=== PATIENT | male | born 1960 | race Caucasian/White ===

== ENCOUNTER 2024-06-07 08:38 | Outpatient (AMB) | payer MEDICARE, SELFPAY ==
--- NOTE | 2024-06-07 08:40 | MHC.PC.OV ---
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: No Allergies No Known Allergies Allergy (Verified 06/07/24 08:59) Medication List - Last Reconciled 06/07/24 by Angel Baird CNP amlodipine mg PO DAILY apixaban (Eliquis) mg PO BID hydralazine 10 mg PO BID metoprolol succinate ER mg PO DAILY prednisone mg PO DAILY Tobacco use date assessed: 06/07/24 Fall risk assessment: No Falls in past year Last assessed Fall Risk: 06/07/24 Dental Screening Dental Screen Date: 06/07/24 Did you have a dental visit in the last 12 months?: Yes Did you have a dental problem in the last 6 months where you did not have access to dental care?: No Was dental information given to patient?: Patient has dentist HPI HPI Comments History of Present Illness Details 63-year-old male presents to establish care. Prior PCP? - Dr. Jimenez, private practice, [place] Last office visit/CPE/labs - Early 1999 Acute issue(s) - HTN: On amlodipine 10 mg daily, metoprolol succinate 100 mg daily, hydralazine 10 mg twice daily. However, he has not been on metoprolol succinate for the past one month. His home systolic blood pressure is in the 130s and 140s. He does not recall home diastolic blood pressure readings. - Afib: Diagnosed at [facility] in 01/2024 when he was admitted for COVID-19 infection; echocardiogram was not done; he has not followed cardiology. He is on Eliquis 5mg twice daily. - Organizing pneumonia: On prednisone taper. Followed by [facility] pulmonology. - Myopia: He Wears prescription glasses. - Painless lesion to bottom lip for several years. Past Medical History - HTN - Afib - Organizing pneumonia - Myopia Surgical History - Tonsillectomy Family History - Dad: HTN - Mom: Lung cancer Social History - Nonsmoker. Does not vape. Drinks 1 beer weekly. Denies recreational drug use - Does not make healthy dietary choices. Active but does not exercises routinely. Generally sleep well Health maintenance - Last eye exam was 20 years ago. Referred to ophthalmology for routine eye care - Last dental visit was 3 months ago. He sees receives dental care three times yearly - He has never been vaccinated for shingles or pneumonia; encouraged to get vaccinated for both. He may get a vaccines from the local pharmacy - Last tetanus vaccine was at childhood; received Tdap vaccine today - Has not been vaccinated for the flu this season; received the flu vaccine today - He has never had a colonoscopy. [place] [facility] [place] Specialists - [facility] pulmonology 01/24/2024 [facility] ED discharge summary: Recent presented not feeling well to the ED. he tested positive for COVID-19. He was administered IV steroids. CVAT scan of the chest revealed organizing pneumonia in the right lower lobe. He completed 5 days of antibiotic treatment while in the hospital and his pneumonia improved. He was also diagnosed with AFib (likely in the setting of COVID-19), hypertension, diabetes with an A1c of 6.6%. For hypertension, who was started amlodipine 10 mg daily and hydralazine 10 mg twice daily. For AFib, he was started on metoprolol 100 mg daily and Eliquis 5 mg twice daily. He was discharged home with instructions to follow-up with his PCP, pulmonology, and Cardiology (for outpatient echocardiogram). 04/08/2024 [facility] pulmonology note: Organism pneumonia is related to COVID-19 disease, improving, chest x-ray clear. Continue prednisone 10 mg daily. Bactrim was discontinued. Follow-up in 06/2024. [facility] Medical History (Updated 06/07/24 @ 13:03 by Angel Baird CNP) High blood pressure Surgical History (Updated 06/07/24 @ 10:15 by Angel Baird CNP) Hx of tonsillectomy Family History (Updated 06/07/24 @ 08:55 by Aisha Smith) Father High blood pressure Lung cancer Mother Cancer Social History Housing: House Patient Tobacco Use Status: Never used Tobacco e-Cigarette/Vaping Use: Never Used Second Hand Smoke Exposure: No service: No Current occupational status: retired Cognitive needs: No Hearing needs: No Vision needs: No Questionnaire PHQ-9 Over the last 2 weeks, how often have you been bothered by any of the following problems? 1. Little interest or pleasure in doing things: not at all 2. Feeling down, depressed, or hopeless: not at all 3. Trouble falling or staying asleep, or sleeping too much: not at all 4. Feeling tired or having little energy: several days 5. Poor appetite or overeating: not at all 6. Feeling bad about yourself - or that you are a failure or have let yourself or your family down: not at all 7. Trouble concentrating on things, such as reading the newspaper or watching television: not at all 8. Moving or speaking so slowly that other people could have noticed. Or the opposite - being so fidgety or restless that you have been moving around a lot more than usual: not at all 9. Thoughts that you would be better off or of hurting yourself in some way: not at all Total score: 1 Depression Screening Interpretation: Negative Depression Screening Done: Yes 11186 - PHQ-9 Billing: Yes Source: Developed by Drs. Brandyn Negrete, Anabella Faustin, Nikolas Abarca and colleagues, with an educational barbara from [employer]. Thrive Questionnaire Date Thrive assessed: 06/07/24 I am a: Patient What is your living situation today?: I have a steady place to live Within the past 12 months, did the food you bought not last and you didn't have the money to get more?: Never true Within the past 12 months, did you worry whether your food would run out before you got money to buy more?: Never true Do you have trouble paying for medicines?: No Do you have trouble getting transportation to medical appointments?: No Do you have trouble paying your heating and electricity bill?: No Do you have trouble taking care of your child, family member or friend?: No Do you have trouble with day-to-day activities such as bathing, preparing meals, shopping, managing finances, etc.?: No Are you currently unemployed and looking for a job?: No Are you interested in more education?: No Please select the resources that you would like help with: None Currently or been in a relationship where the following occur: No concerns reported THRIVE Score: 0 AUDIT C Alcohol Use Questionnaire (AUDIT-C) 1. How often do you have a drink containing alcohol?: Monthly or less 2. How many drinks containing alcohol do you have on a typical day when you are drinking?: 1 or 2 3. How often do you have six or more drinks on one occasion?: Never Total Score: 1 Score Reviewed/Action Taken: Yes DORYS-7 AMB Questionnaire DORYS-7 Date DORYS - 7 assessed: 06/07/24 Feeling nervous, anxious, or on edge: 0 = Not at all Not being able to stop or control worryin = Not at all Worrying too much about different things: 0 = Not at all Trouble relaxin = Not at all Being so restless that it is hard to sit still: 0 = Not at all Becoming easily annoyed or irritable: 0 = Not at all Feeling afraid as if something awful might happen: 0 = Not at all Total DORYS-7 score (0-4 normal; 5-9 mild; 10-14 moderate; 15-21 severe): 0 Source: Developed by Drs. Brandyn Negrete, Anabella Faustin, Nikolas Abarca and colleagues, with an educational barbara from [employer]. DORYS-7 Assessment Billing DORYS-7 Assessment Tool: DORYS-7 Assessment 12505 Review of Systems Const Details: Denies chills, Denies fatigue, Denies fever(s), Denies headache(s) and Denies weakness HEENT Denies change in vision, Denies dizziness, Denies headache(s), Denies hearing loss, Denies nasal congestion, Denies sinus pain, Denies sinus pressure and Denies sore throat Card Denies chest pain, Denies lightheadedness, Denies dyspnea and Denies other (palpitations) Resp Denies cough, Denies dyspnea and Denies wheezing GI Denies abdominal pain, Denies melena, Denies hematochezia, Denies change in bowel habits, Denies dyspepsia and Denies nausea Denies hematuria and Denies dysuria Musc Denies abnormal gait, Denies myalgias, Denies arthralgias, Denies numbness and Denies tingling Skin/Breast Reports lesion to bottom lip, Denies rash, Denies unusual bruising and Denies wounds Neuro Denies abnormal gait, Denies dizziness, Denies headache(s), Denies memory loss, Denies numbness, Denies Sensory deficit (Neuro), Denies tingling and Denies weakness Psych Denies anxiety, Denies depression and Denies memory loss Endo Denies cold intolerance, Denies fatigue, Denies heat intolerance, Denies polydipsia and Denies polyuria Daniel/Lymph Denies easy bleeding and Denies easy bruising Aller/Immun Denies wheezing Physical exam (Primary Care) Vital Signs: Last Vital Signs Temp 99.0 F 06/07/24 08:52 Pulse 80 06/07/24 09:04 Resp 16 06/07/24 08:52 BP 160/90 H 06/07/24 09:04 Pulse Ox 96 06/07/24 08:52 Oxygen Delivery Method Room Air 06/07/24 08:52 BMI result Body Mass Index 42.0 Tobacco/Smoking Status: Tobacco use Status Tobacco use date assessed 06/07/24 06/07/24 08:52 Patient Tobacco Use Status Never used Tobacco 06/07/24 08:52 e-Cigarette/Vaping Use Never Used 06/07/24 08:52 PHQ-9: PHQ-9 Score PHQ-9: Total score 1 06/07/24 10:22 Depression Screening Interpretation: Negative Thrive Assessment: Date of Thrive Assessment Date Thrive assessed 06/07/24 06/07/24 08:43 Currently or been in a relationship where the following occur: No concerns reported Const Other: General: no acute distress, well developed, alert and awake Nutritional Appearance: well nourished Orientation/consciousness: patient oriented x3 HENMT Head: Yes normocephalic and Yes atraumatic Ears: hearing grossly normal bilaterally and TM's normal bilaterally General nose exam: Normal external nose present and Normal nares present Mouth: Normal oral and palatal mucosa present and moist mucous membranes Teeth and gingiva: dentition normal Throat: Yes oropharynx normal Eyes Pupils: Equal, round and reactive pupils present and Pupil accommodation reflex normal EOM: EOMs intact bilaterally Neck Neck: Yes normal visual inspection, Yes no lymphadenopathy and Yes trachea midline Thyroid: Thyroid normal Carotids: no bruits Lymphatic: no lymphadenopathy noted Chest Chest palpation & inspection: normal inspection of the chest Resp Effort & Inspection: normal respiratory effort Auscultation: clear to auscultation bilaterally Cardio Rate: regular rate Rhythm: regular rhythm Heart sounds: S1 normal heart sound present, S2 normal heart sound present, no gallops, no murmurs and no rubs Bruits: no abdominal aortic bruits and no carotid bruits GI Palpation (GI): No Abdominal aortic bruit present, Soft to palpation, nontender, No hepatosplenomegaly present and No Rebound tenderness present Auscultation: normal bowel sounds General: Yes no CVA tenderness Back/Spine/Pelvis Back: no CVA tenderness Cervical Spine: cervical ROM normal and No Cervical spine tenderness Thoracic/Lumbar Spine: thoraco-lumbar ROM normal, No pain with thoraco-lumbar ROM, No thoracic spinal tenderness and No lumbar spinal tenderness Skin General: warm and dry. Normal skin color. Normal skin turgor Lesions: Soft, small, round, nonraised, nontender discoloration to the bottom lip Rashes: no rashes Trauma: no lacerations or abrasions Wounds: no wounds Nails: normal Neuro General: patient oriented x3, gait normal and CN's II-XI intact bilaterally Cranial nerves: Yes Equal, round and reactive pupils present Cognition (Neuro): normal cognition Gait exam (Neuro): Normal gait present Motor exam (neuro): 5/5 motor strength present throughout Sensory Exam: No Sensory deficit (Neuro) Deep tendon reflexes (DTR's): Right patellar reflex intensity grade: 2+ and Left patellar reflex intensity grade: 2+ Extrem General: Yes normal to inspection, No edema and No calf tenderness Psych Appearance: grossly normal Affect: normal affect Attitude: cooperative Thought process: Normal thought process present Office Procedures Flu Questionnaire Does the patient have a severe egg allergy?: No Does the patient have severe life threatening allergies?: No Does the patient have a fever or illness today?: No Has the patient ever had Guillain-[place] Syndrome?: No Has the patient ever had any past reaction to a flu shot?: No Immunizations Fluarix Triv 1675-3511 (PF) 45 mcg (15 mcg x 3)/0.5 mL IM syringe Performing Provider: Angel Baird CNP [place] [facility] [place] [facility] Administered by: Jesse Saldana RN on 06/07/24 09:45 Dose Route Admin Location Dispensed Lot Number Expiration Date [facility] Hand Crown Pouncer 0.5 mL IM Right Deltoid 0.5 mL [id number] 10/01/24 60301-664-02 [place] VIS Given Date VIS Provided VIS Publication Date 06/07/24 Single Vaccine 20 Eligibility Eligibility Date Funding Source Not VFC Eligible 06/07/24 Private Boostrix Tdap 2.5 Lf unit-8 mcg-5 Lf/0.5 mL intramuscular syringe Performing Provider: Angel Baird CNP Performing [place] [facility] [place] Administered by: Jesse Saldana RN on 06/07/24 09:47 Dose Route Admin Location Dispensed Lot Number Expiration Date [employer] Hand Crown Pouncer 0.5 mL IM Right Deltoid 0.5 mL [id number] 01/29/25 [id number] [employer] VIS Given Date VIS Provided VIS Publication Date 06/07/24 Single Vaccine 20 Eligibility Eligibility Date Funding Source Not VFC Eligible 06/07/24 Private Coding Level of Care Code New Pt Level 5 (32600) New Pt Prev Care >65yr (13750) Diagnoses Normal physical examination, routine Z00.00 Afib I48.91 High blood pressure I10 Organizing pneumonia J84.89 Type 2 diabetes mellitus E11.9 Lip lesion K13.0 Morbid obesity with BMI of 40.0-44.9, adult E66.01; Z68.41 Colon cancer screening Z12.11 Myopia H52.10 Vaccine counseling Z71.85 Laboratory tests ordered as part of a complete physical exam (CPE) Z00.00 Additional Codes DORYS-7 Assessment Billing - DORYS-7 Assessment Tool: DORYS-7 Assessment 62015 ([id number]) PHQ-9 - 51205 - PHQ-9 Billing: Yes ([id number]) Comment 50 minutes with patient Assessment & Plan Assessment & Plan (1) Normal physical examination, routine: Code(s): Z00.00 - Encounter for general adult medical examination without abnormal findings Category: Medical Plan: No significant functional limitation noted. Continue current treatment regimen. Advised to perform lab work and follow-up for hypertension and labs review in 2 weeks. Return sooner with symptoms or concerns. Verbalized understanding and agreed with treatment plan. (2) Afib: Code(s): I48.91 - Unspecified atrial fibrillation Category: Medical Plan: He was diagnosed with AFib when he was admitted for COVID-19 infection at [facility] ED in 01/2024. He was started on Eliquis 5 mg twice daily which she continues to take. EKG in office today revealed normal sinus rhythm with LVH which may be attributed to uncontrolled hypertension. There is isolated peak T-wave in lead V2. Continue to take Eliquis as prescribed. Will check potassium level and make changes as needed. Referred to Cardiology for further workup/management. Verbalized understanding and agreed with the plan. (3) High blood pressure: Code(s): I10 - Essential (primary) hypertension Category: Medical Plan: Resting blood pressure is 160/90, above goal of less than 140/90. He has been taking amlodipine 10 mg daily and hydralazine 10 mg twice daily; encouraged to continue both meds. He has not been taking metoprolol succinate 100 mg since he ran out of refills a month ago. Metoprolol succinate 50 mg daily ordered; advised to take as prescribed. Instructed on the risks, benefits, and potential adverse reactions of the medication. His home systolic blood pressure readings have in the 130s and 140s. He will continue to monitor his blood pressure daily, record readings, and bring to next appointment. Follow-up in 2 weeks. Verbalized understanding and agreed with treatment plan. Cardiology referral made for AFib and hypertension. (4) Organizing pneumonia: Code(s): J84.89 - Other specified interstitial pulmonary diseases Category: Medical Plan: Currently on prednisone taper. Followed by [facility] pulmonology. (5) Type 2 diabetes mellitus: Code(s): E11.9 - Type 2 diabetes mellitus without complications Category: Medical Plan: He was diagnosed and 01/24/2024; his A1c was 6.6%. He has not been on medications for diabetes. Routine exercise and healthy diet, including low carbs encouraged. Will recheck A1c and make changes as needed. Verbalized understanding and agreed with treatment plan. (6) Lip lesion: Code(s): K13.0 - Diseases of lips Category: Medical Plan: Lesion to bottom lip for several years. Soft, small, round, nonraised, nontender discoloration to the bottom lip. Referred to dermatology for further workup. (7) Morbid obesity with BMI of 40.0-44.9, adult: Code(s): E66.01 - Morbid (severe) obesity due to excess calories; Z68.41 - Body mass index [BMI] 40.0-44.9, adult Category: Medical Plan: He currently weighs 310 lb, BMI is 42.0. He has been making on healthy dietary choices. He declines referral to video engineer/dietitian or weight management and notes that he will start making healthy dietary choices and exercising routinely. Healthy diet and routine exercise encouraged. Follow-up as needed. Verbalized understanding and agreed with the treatment plan. (8) Colon cancer screening: Code(s): Z12.11 - Encounter for screening for malignant neoplasm of colon Category: Medical Plan: He has never had a colonoscopy. [place] [facility] [place] a colon[place]. (9) Myopia: Code(s): H52.10 - Myopia, unspecified eye Category: Medical Plan: He wears prescription glasses. His last eye exam was 20 years ago. Referred to ophthalmology for routine eye care. (10) Vaccine counseling: Code(s): Z71.85 - Encounter for immunization safety counseling Category: Medical Plan: He has never been vaccinated for shingles or pneumonia. Instructed on the importance of vaccinations and encouraged to get vaccinated for both shingles and pneumonia. He may get a vaccines from the local pharmacy. Verbalized understanding and agreed with treatment plan. (11) Laboratory tests ordered as part of a complete physical exam (CPE): Code(s): Z00.00 - Encounter for general adult medical examination without abnormal findings Category: Medical Plan: Fasting labs ordered as part of a complete physical exam. Advised to fast for at least 10 hours before getting labs drawn. May drink water Verbalized understanding and agreed with treatment plan. Plan Total time spent caring for the patient today was 75 minutes. This includes time spent before the visit reviewing the chart, time spent during the visit, and time spent after the visit on documentation, reviewing laboratory results, diagnostic imaging, medications, performing a medically necessary evaluation, counseling on diagnoses, care coordination, ordering appropriate tests, ordering appropriate medications, review of tests performed by other providers, reporting test results with the patient, communication with other healthcare providers. Orders: Orders Comprehensive [place]. Panel Fast Today Z00.00 - Encounter for general adult medical examination without abnormal findings Lipid Panel Today Z00.00 - Encounter for general adult medical examination without abnormal findings TSH reflex Free T4 Today Z00.00 - Encounter for general adult medical examination without abnormal findings PSA, Ultra Sensitive Today Z00.00 - Encounter for general adult medical examination without abnormal findings UA CC w/rflx Micro + Cult Today Z00.00 - Encounter for general adult medical examination without abnormal findings Vitamin D 25-OH Total Today Z00.00 - Encounter for general adult medical examination without abnormal findings Influenza 4700-1332 Immunization Today Z23 - Encounter for immunization TDaP Immunization Today Z23 - Encounter for immunization AMB EKG-In Office Today I48.91 - Unspecified atrial fibrillation Hemoglobin A1c Today E11.9 - Type 2 diabetes mellitus without complications Complete Blood Count Auto Diff Today Z00.00 - Encounter for general adult medical examination without abnormal findings Microalbumin, Random (w Creat) Today Z00.00 - Encounter for general adult medical examination without abnormal findings Referrals Ophthalmology Referral H52.10 - Myopia, unspecified eye Dermatology Referral K13.0 - Diseases of lips Cardiology Referral I10 - Essential (primary) hypertension, I48.91 - Unspecified atrial fibrillation Gastroenterology Referral Z12.11 - Encounter for screening for malignant neoplasm of colon Medications: New metoprolol succinate ER 50 mg PO DAILY 30 days 30 tabs 3RF
[2024-06-07 08:52] VITALS: BP 177/84; PULSE 80; RESP 16; TEMP 37.2; O2SAT 96; BMI 42.0
[2024-06-07 09:04] VITALS: BP 160/90; PULSE 80
== END 2024-06-07 10:02 | disposition home or self-care (01) ==
PROVIDERS: Visit Provider Nurse Practitioner Family
DX: Z00.00 Encounter for general adult medical examination without abnormal findings (principal); I48.91 Unspecified atrial fibrillation; J84.89 Other specified interstitial pulmonary diseases; E66.01 Morbid (severe) obesity due to excess calories; Z68.41 Body mass index [BMI] 40.0-44.9, adult; E11.9 Type 2 diabetes mellitus without complications; I10 Essential (primary) hypertension; K13.0 Diseases of lips; Z12.11 Encounter for screening for malignant neoplasm of colon; Z71.85 Encounter for immunization safety counseling; Z23 Encounter for immunization

== ENCOUNTER → 2024-06-07 08:38 | Outpatient (BNVA) | payer MEDICARE, SELFPAY | PROVIDERS: Visit Provider Nurse Practitioner Family | DX: Z00.00 Encounter for general adult medical examination without abnormal findings (principal); Z23 Encounter for immunization; I48.91 Unspecified atrial fibrillation; I10 Essential (primary) hypertension; J84.89 Other specified interstitial pulmonary diseases; E11.9 Type 2 diabetes mellitus without complications; K13.0 Diseases of lips; E66.01 Morbid (severe) obesity due to excess calories; Z68.41 Body mass index [BMI] 40.0-44.9, adult; H52.10 Myopia, unspecified eye; Z71.85 Encounter for immunization safety counseling; Z71.3 Dietary counseling and surveillance | CPT/HCPCS: 90471; 90656; 90715; 96127; 99202; 99387 ==

== ENCOUNTER 2024-06-12 09:06 | Outpatient (REF) | payer MEDICARE, SELFPAY ==
[2024-06-12 11:42] LABS: MANUAL DIFF FLAG NO
[2024-06-12 11:46] LABS: Basophils Absolute Auto 0.1 X10*3/uL (0.0-0.2); Basophils Percent Auto 0.6 % (0-2); Eosinophils Absolute Auto 0.1 X10*3/uL (0.0-0.4); Eosinophils Percent Auto 1.7 % (0-4); Hemoglobin 14.6 g/dl (14.0-18.0); Imm Gran Abs Auto 0.07 X10*3/uL (0.00-0.03); Imm Gran Pct Auto 0.9 % (0.0-0.4); Lymphocytes Percent Auto 36.2 % (20-40); Mean Corpuscular HGB Conc 33.2 g/dl (31.0-36.0); Mean Corpuscular Hemoglobin 30.6 pg (27.0-33.0); Mean Corpuscular Volume 92.2 fL (80.0-98.0); Mean Platelet Volume 11.4 fL (9.4-12.4); Monocytes Absolute Auto 0.7 X10*3/uL (0.1-1.2); Monocytes Percent Auto 8.1 % (2-11); Neutrophils Absolute Auto 4.3 x10*3/uL (2.0-8.3); Neutrophils Percent Auto 52.5 % (45-73); Platelet Count 190 X10*3/uL (160-400); Red Blood Count 4.77 X10*6/uL (4.60-5.80); Red Cell Distribution Width 12.2 % (11.0-16.0); White Blood Count 8.2 X10*3/uL (4.8-10.8)
[2024-06-12 11:54] LABS: Estimated Average Glucose 131 mg/dL; Hemoglobin A1c % 6.2 % (<6.0)
[2024-06-12 12:48] LABS: Alanine Aminotransferase 20 U/L (0-40); Albumin Level 3.7 g/dL (3.5-5.0); Alkaline Phosphatase 38 U/L (39-117); Anion Gap 10 (12-20); Aspartate Amino Transferase 20 U/L (5-37); Bilirubin Total 0.7 mg/dL (0.0-1.0); Blood Urea Nitrogen 21 mg/dL (9-16); Calcium 8.7 mg/dL (8.4-10.2); Carbon Dioxide 28 mmol/L (22-29); Chloride 110 mmol/L (96-108); Cholesterol 213 mg/dL (<200); Estimated Glomerular Filt Rate 56; Glucose Fasting 92 mg/dL (60-99); HDL Cholesterol 55 mg/dL (>40); LDL Cholesterol Calculated 127 mg/dL (<100); Potassium 3.8 mmol/L (3.3-5.1); Sodium 144 mmol/L (135-145); TSH reflex Free T4 4.82 uIU/mL (0.32-4.0); Total Protein 6.6 g/dL (6.5-8.0); Triglycerides 159 mg/dL (<150); Vitamin D 25-OH Total 40.1 ng/mL (>30)
[2024-06-12 14:38] LABS: Appearance Urine Clear; Color Urine Dark Yellow; Glucose Urine UA Negative (Negative); Leukocyte Esterase Urine Negative (Negative); Nitrite Urine Negative (Negative); PH 5.5 (5.0-9.0); Specific Gravity - Urine 1.025 (1.005-1.025); UMIC TRIGGER UACC YES; Urine Blood Negative (Negative); Urine Ketones Trace mg/dL (Negative); Urine Protein 30 (1+) mg/dL (Neg-Trace)
[2024-06-12 14:55] LABS: Bacteria Urine None Seen (None Seen); RBC Urine 0-2 /HPF (0-2); Squamous Epithelial Cell Urine 0-2 /HPF (0-2); WBC Urine 0-5 /HPF (0-5)
[2024-06-12 15:38] LABS: Microalbum/Creatinine Ratio Ur 10.1 ug/mg cr (<30)
[2024-06-16 21:09] LABS: PSA, Ultra Sensitive 1.37 ng/mL
== END 2024-06-12 09:07 | disposition home or self-care (01) ==
LOC: HO.WFDLDS 09:06
PROVIDERS: Visit Provider Nurse Practitioner Family
DX: Z00.00 Encounter for general adult medical examination without abnormal findings (principal); E11.9 Type 2 diabetes mellitus without complications; Z12.5 Encounter for screening for malignant neoplasm of prostate
CPT/HCPCS: 36415; 80053; 80061; 81001; 82043; 82306; 82570; 83036; 84153; 84439; 84443; 85025

== ENCOUNTER 2024-06-21 10:40 | Outpatient (AMB) | payer MEDICARE, SELFPAY ==
--- NOTE | 2024-06-21 10:42 | A.OFFPC_ITS ---
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 Required: No Allergies No Known Allergies Allergy (Verified 06/21/24 10:53) Medication List - Last Reconciled 06/21/24 by Angel Baird CNP amlodipine mg PO DAILY apixaban (Eliquis) mg PO BID hydralazine 10 mg PO BID metoprolol succinate ER 50 mg PO DAILY 30 days prednisone 5 mg PO DAILY prednisone 5 mg PO DAILY Tobacco use date assessed: 06/21/24 Fall risk assessment: No Falls in past year Last assessed Fall Risk: 06/21/24 Dental Screening Dental Screen Date: 06/21/24 Did you have a dental visit in the last 12 months?: Yes Did you have a dental problem in the last 6 months where you did not have access to dental care?: No Was dental information given to patient?: Patient has dentist HPI HPI Comments History of Present Illness Details 63-year-old male presents for hypertensi on and review of recent lab results. He admits to taking his medications as prescribed without adverse reactions. He admits to consuming significant amount of fatty foods. He offers no complaints and denies acute symptoms at this time. [facility] Medical History (Updated 06/21/24 @ 10:54 by Angel Baird CNP) High blood pressure Surgical History (Updated 06/07/24 @ 10:15 by Angel Baird CNP) Hx of tonsillectomy Family History (Updated 06/07/24 @ 08:55 by Aisha Smith MA) Father High blood pressure Lung cancer Mother Cancer Social History Housing: House Patient Tobacco Use Status: Never used Tobacco e-Cigarette/Vaping Use: Never Used Second Hand Smoke Exposure: No service: No Current occupational status: retired Current occupational exposures/hazards: No Cognitive needs: No Hearing needs: No Vision needs: No Questionnaire Thrive Questionnaire Date Thrive assessed: 06/07/24 I am a: Patient What is your living situation today?: I have a steady place to live Within the past 12 months, did the food you bought not last and you didn't have the money to get more?: Never true Within the past 12 months, did you worry whether your food would run out before you got money to buy more?: Never true Do you have trouble paying for medicines?: No Do you have trouble getting transportation to medical appointments?: No Do you have trouble paying your heating and electricity bill?: No Do you have trouble taking care of your child, family member or friend?: No Do you have trouble with day-to-day activities such as bathing, preparing meals, shopping, managing finances, etc.?: No Are you currently unemployed and looking for a job?: No Are you interested in more education?: No Please select the resources that you would like help with: None Currently or been in a relationship where the following occur: No concerns reported THRIVE Score: 0 DORYS-7 AMB Questionnaire DORYS-7 Date DORYS - 7 assessed: 06/07/24 Source: Developed by Drs. Brandyn Negrete, Anabella Faustin, Nikolas Abarca and colleagues, with an educational barbara from [email or web address]. Review of Systems Const Details: Const Denies chills, Denies fatigue, Denies fever(s), Denies headache(s) and Denies weakness ENT Denies dizziness and Denies headache(s) Card Denies chest pain, Denies lightheadedness, Denies dyspnea and Denies other (Palpitations) Resp Denies cough, Denies dyspnea, Denies wheezing and Denies other ( shortness of breath) GI Denies abdominal pain, Denies melena, Denies hematochezia, Denies change in bowel habits, Denies dyspepsia and Denies nausea Denies hematuria and Denies dysuria Musc Denies abnormal gait, Denies myalgias, Denies arthralgias, Denies numbness and Denies tingling Skin/Breast Denies rash, Denies unusual bruising and Denies wounds Neuro Denies abnormal gait, Denies dizziness, Denies headache(s), Denies memory loss, Denies numbness, Denies Sensory deficit (Neuro), Denies tingling and Denies weakness Psych Denies anxiety, Denies depression, Denies memory loss Endo Denies cold intolerance, Denies fatigue, Denies heat intolerance, Denies polydipsia and Denies polyuria Aller/Immun Denies wheezing Physical exam (Primary Care) Vital Signs: Last Vital Signs Temp 97.4 F 06/21/24 10:46 Pulse 61 06/21/24 10:46 Resp 16 06/21/24 10:46 BP 150/81 H 06/21/24 10:46 Pulse Ox 97 06/21/24 10:46 Oxygen Delivery Method Room Air 06/21/24 10:46 BMI result Body Mass Index 42.0 Tobacco/Smoking Status: Tobacco use Status Tobacco use date assessed 06/21/24 06/21/24 10:51 Patient Tobacco Use Status Never used Tobacco 06/21/24 10:44 e-Cigarette/Vaping Use Never Used 06/21/24 10:44 Thrive Assessment: Date of Thrive Assessment Date Thrive assessed 06/07/24 06/21/24 10:44 Currently or been in a relationship where the following occur: No concerns reported Const Other: General: no acute distress and well developed Nutritional Appearance: well nourished Orientation/consciousness: patient oriented x3 HENMT Head: Yes normocephalic and Yes atraumatic Eyes General: appearance normal, both eyes and all related structures Pupils: Equal, round and reactive pupils present EOM: EOMs intact bilaterally Resp Effort & Inspection: normal respiratory effort Auscultation: clear to auscultation bilaterally Cardio Rate: regular rate Rhythm: regular rhythm Heart sounds: S1 normal heart sound present, S2 normal heart sound present, no gallops, no murmurs and no rubs GI Palpation (GI): No Abdominal aortic bruit present, Soft to palpation, nontender, No hepatosplenomegaly present and No Rebound tenderness present Auscultation: normal bowel sounds General: Yes no CVA tenderness Back/Spine/Pelvis Back: no CVA tenderness Cervical Spine: cervical ROM normal and No Cervical spine tenderness Thoracic/Lumbar Spine: thoraco-lumbar ROM normal, No pain with thoraco-lumbar ROM, No thoracic spinal tenderness and No lumbar spinal tenderness Extrem General: Yes normal to inspection, No edema and No calf tenderness Skin General: warm and dry. Normal skin color. Normal skin turgor Neuro General: patient oriented x3, gait normal and no focal neuro deficit Cranial nerves: Yes Equal, round and reactive pupils present Cognition (Neuro): normal cognition Gait exam (Neuro): Normal gait present Sensory Exam: No Sensory deficit (Neuro) Psych Appearance: grossly normal Affect: normal affect Attitude: cooperative Thought process: Normal thought process present Coding Level of Care Code Est Pt Level 3 (66185) Diagnoses High blood pressure I10 Type 2 diabetes mellitus E11.9 Hyperlipidemia E78.5 Elevated TSH R79.89 Assessment & Plan Assessment & Plan (1) High blood pressure: Code(s): I10 - Essential (primary) hypertension Category: Medical Plan: Resting blood pressure is 118/70, within goal of less than 130/80. Continue current treatment regimen. Follow-up in 2 months or sooner with symptoms or concerns. Verbalized understanding and agreed with treatment plan. (2) Type 2 diabetes mellitus: Code(s): E11.9 - Type 2 diabetes mellitus without complications Category: Medical Plan: Recent A1c is 6.2%, within goal of less than 7.0%. Diet controlled diabetes. Routine exercise and healthy diet, including low carbs encouraged. Will recheck A1c in 3 months. Verbalized understanding and agreed with treatment plan. (3) Hyperlipidemia: Code(s): E78.5 - Hyperlipidemia, unspecified Category: Medical Plan: Recent triglycerides, total cholesterol, and LDL levels a slightly elevated, 159, 213, and 127 respectively. He has been consuming significant amount of fatty foods. Advised to limit foods high in saturated fat and avoid foods high in trans fat. Routine exercise encouraged. Fast for 10-12 hours, may drink water, and perform lipid panel blood work 2-3 days before next visit. Follow-up in 2 months. Verbalized understanding and agreed with treatment plan. (4) Elevated TSH: Code(s): R79.89 - Other specified abnormal findings of blood chemistry Category: Medical Plan: Recent TSH is slightly elevated, 4.82. Free T4 is normal. Subclinical hypothyroidism. Will recheck TSH/T4 level and make changes as needed. Verbalized understanding and agreed with treatment plan Orders: Orders Lipid Panel 2 Months E78.5 - Hyperlipidemia, unspecified TSH reflex Free T4 Today R79.89 - Other specified abnormal findings of blood chemistry
[2024-06-21 10:46] VITALS: BP 150/81; PULSE 61; RESP 16; TEMP 36.3; O2SAT 97; BMI 42.0
[2024-06-21 11:03] VITALS: BP 118/70
== END 2024-06-21 11:12 | disposition home or self-care (01) ==
LOC: HO.HMCFM 10:41
PROVIDERS: PCP Nurse Practitioner Family; Visit Provider Nurse Practitioner Family
DX: I10 Essential (primary) hypertension (principal); E11.9 Type 2 diabetes mellitus without complications; E78.5 Hyperlipidemia, unspecified; R79.89 Other specified abnormal findings of blood chemistry

== ENCOUNTER → 2024-06-21 10:40 | Outpatient (BNVA) | payer MEDICARE, SELFPAY | PROVIDERS: PCP Nurse Practitioner Family; Visit Provider Nurse Practitioner Family | DX: I10 Essential (primary) hypertension (principal); E11.9 Type 2 diabetes mellitus without complications; E78.5 Hyperlipidemia, unspecified; R94.6 Abnormal results of thyroid function studies | CPT/HCPCS: 99212 ==

== ENCOUNTER 2024-06-21 11:20 | Outpatient (REF) | payer MEDICARE, SELFPAY ==
[2024-06-21 15:40] LABS: TSH reflex Free T4 2.73 uIU/mL (0.32-4.0)
== END 2024-06-21 11:21 | disposition home or self-care (01) ==
LOC: HO.WFDLDS 11:20
PROVIDERS: Visit Provider Nurse Practitioner Family
DX: I10 Essential (primary) hypertension (principal); E11.9 Type 2 diabetes mellitus without complications; E78.5 Hyperlipidemia, unspecified; R94.6 Abnormal results of thyroid function studies
CPT/HCPCS: 36415; 84443; 99212

== ENCOUNTER 2024-09-10 09:20 | Outpatient (REF) | payer MEDICARE, SELFPAY ==
[2024-09-10 11:44] LABS: Cholesterol 191 mg/dL (<200); HDL Cholesterol 38 mg/dL (>40); LDL Cholesterol Calculated 129 mg/dL (<100); Triglycerides 120 mg/dL (<150)
== END 2024-09-10 09:21 | disposition home or self-care (01) ==
LOC: HO.WFDLDS 09:20
PROVIDERS: Visit Provider Nurse Practitioner Family
DX: E78.5 Hyperlipidemia, unspecified (principal)
CPT/HCPCS: 36415; 80061

== ENCOUNTER 2024-09-11 10:35 | Outpatient (REF) | payer MEDICARE, SELFPAY ==
[2024-09-11 14:18] LABS: Appearance Urine Clear; Color Urine Yellow; Glucose Urine UA Negative (Negative); Leukocyte Esterase Urine Negative (Negative); Nitrite Urine Negative (Negative); Urine Blood Negative (Negative); Urine Ketones Negative (Negative); Urine Protein Negative (Neg-Trace)
== END 2024-09-11 10:36 | disposition home or self-care (01) ==
LOC: HO.LNP 10:35
PROVIDERS: PCP Nurse Practitioner Family; Visit Provider Nurse Practitioner Family
DX: Z00.00 Encounter for general adult medical examination without abnormal findings (principal); R60.0 Localized edema; I10 Essential (primary) hypertension; E78.5 Hyperlipidemia, unspecified; E11.9 Type 2 diabetes mellitus without complications
CPT/HCPCS: 81003; 83036; 99212

== ENCOUNTER 2024-09-11 10:35 | Outpatient (AMB) | payer MEDICARE, SELFPAY ==
--- NOTE | 2024-09-11 10:37 | A.OFFPC_ITS ---
Vital Signs 09/11/24 10:44 Height 6 ft Weight 309 lb 6 oz BMI 42.0 BP 123/74 Blood Pressure Location Rt brachial Position Sitting Respiration 16 Pulse 69 Pulse Source Pulse Oximeter Temp 97.9 F Temp Source Oral Pulse Oximetry (%) 98 Oxygen Delivery Method Room Air Intake Visit Reasons: 2 mos HTN, HLD Intake Note: patient here for 2 months follow up on HTN and HLD Manager Balance Required: No Allergies No Known Allergies Allergy (Verified 09/11/24 11:02) Medication List - Last Reconciled 09/11/24 by Agnel Baird CNP amlodipine 10 mg PO DAILY 30 days apixaban (Eliquis) mg PO BID hydralazine 10 mg PO BID metoprolol succinate ER 50 mg PO DAILY 90 days Tobacco use date assessed: 09/11/24 Fall risk assessment: No Falls in past year Last assessed Fall Risk: 09/11/24 Dental Screening Dental Screen Date: 09/11/24 Did you have a dental visit in the last 12 months?: Yes Did you have a dental problem in the last 6 months where you did not have access to dental care?: No Was dental information given to patient?: Patient has dentist HPI HPI Comments History of Present Illness Details 63-year-old male presents for hypertensi on, hyperlipidemia, and diabet es follow-up. He admits to taking his medications as prescribed without adverse reactions. He has been consuming significant amount of red meat, cheese, and processed foods. He reports swelling to his lower legs, ankles, and feet for the past 2 months. He has difficulty putting on shoes. [facility] Medical History (Updated 09/11/24 @ 11:21 by Angel Baird CNP) High blood pressure Surgical History (Updated 06/07/24 @ 10:15 by Angel Baird CNP) Hx of tonsillectomy Family History (Updated 06/07/24 @ 08:55 by Aisha Smith MA) Father High blood pressure Lung cancer Mother Cancer Social History Housing: House Patient Tobacco Use Status: Never used Tobacco e-Cigarette/Vaping Use: Never Used Second Hand Smoke Exposure: No service: No Current occupational status: retired Current occupational exposures/hazards: No Cognitive needs: No Hearing needs: No Vision needs: No Questionnaire Thrive Questionnaire Date Thrive assessed: 06/07/24 I am a: Patient What is your living situation today?: I have a steady place to live Within the past 12 months, did the food you bought not last and you didn't have the money to get more?: Never true Within the past 12 months, did you worry whether your food would run out before you got money to buy more?: Never true Do you have trouble paying for medicines?: No Do you have trouble getting transportation to medical appointments?: No Do you have trouble paying your heating and electricity bill?: No Do you have trouble taking care of your child, family member or friend?: No Do you have trouble with day-to-day activities such as bathing, preparing meals, shopping, managing finances, etc.?: No Are you currently unemployed and looking for a job?: No Are you interested in more education?: No Please select the resources that you would like help with: None Currently or been in a relationship where the following occur: No concerns reported THRIVE Score: 0 DORYS-7 AMB Questionnaire DORYS-7 Date DORYS - 7 assessed: 06/07/24 Source: Developed by Drs. Brandyn Negrete, Anabella Faustin, Nikolas Abarca and colleagues, with an educational barbara from [employer]. Review of Systems Const Details: Const Denies chills, Denies fatigue, Denies fever(s), Denies headache(s) and Denies weakness ENT Denies dizziness and Denies headache(s) Card Denies chest pain, Denies lightheadedness, Denies dyspnea and Denies other (Palpitations) Resp Denies cough, Denies dyspnea, Denies wheezing and Denies other ( shortness of breath) GI Denies abdominal pain, Denies melena, Denies hematochezia, Denies change in bowel habits, Denies dyspepsia and Denies nausea Denies hematuria and Denies dysuria Musc Reports BLE edema, Denies abnormal gait, Denies myalgias, Denies arthralgias, Denies numbness and Denies tingling Skin/Breast Denies rash, Denies unusual bruising and Denies wounds Neuro Denies abnormal gait, Denies dizziness, Denies headache(s), Denies memory loss, Denies numbness, Denies Sensory deficit (Neuro), Denies tingling and Denies weakness Psych Denies anxiety, Denies depression, Denies memory loss Endo Denies cold intolerance, Denies fatigue, Denies heat intolerance, Denies polydipsia and Denies polyuria Aller/Immun Denies wheezing Physical exam (Primary Care) Vital Signs: Last Vital Signs Temp 97.9 F 09/11/24 10:44 Pulse 69 09/11/24 10:44 Resp 16 09/11/24 10:44 BP 123/74 09/11/24 10:44 Pulse Ox 98 09/11/24 10:44 Oxygen Delivery Method Room Air 09/11/24 10:44 BMI result Body Mass Index 42.0 Tobacco/Smoking Status: Tobacco use Status Tobacco use date assessed 09/11/24 09/11/24 10:46 Patient Tobacco Use Status Never used Tobacco 09/11/24 10:40 e-Cigarette/Vaping Use Never Used 09/11/24 10:40 Thrive Assessment: Date of Thrive Assessment Date Thrive assessed 06/07/24 09/11/24 10:40 Currently or been in a relationship where the following occur: No concerns reported Const Other: General: no acute distress and well developed Nutritional Appearance: well nourished Orientation/consciousness: patient oriented x3 HENVT Head: Yes normocephalic and Yes atraumatic Eyes General: appearance normal, both eyes and all related structures Pupils: Equal, round and reactive pupils present EOM: EOMs intact bilaterally Resp Effort & Inspection: normal respiratory effort Auscultation: clear to auscultation bilaterally Cardio Rate: regular rate Rhythm: regular rhythm Heart sounds: S1 normal heart sound present, S2 normal heart sound present, no gallops, no murmurs and no rubs GI Palpation (GI): No Abdominal aortic bruit present, Soft to palpation, nontender, No hepatosplenomegaly present and No Rebound tenderness present Auscultation: normal bowel sounds General: Yes no CVA tenderness Back/Spine/Pelvis Back: no CVA tenderness Cervical Spine: cervical ROM normal and No Cervical spine tenderness Thoracic/Lumbar Spine: thoraco-lumbar ROM normal, No pain with thoraco-lumbar ROM, No thoracic spinal tenderness and No lumbar spinal tenderness Extrem General: Yes normal to inspection, No calf tenderness, Moderate, 1+ edema to bilateral lower legs, ankles, and feet Skin General: warm and dry. Normal skin color. Normal skin turgor Neuro General: patient oriented x3, gait normal and no focal neuro deficit Cranial nerves: Yes Equal, round and reactive pupils present Cognition (Neuro): normal cognition Gait exam (Neuro): Normal gait present Sensory Exam: No Sensory deficit (Neuro) Psych Appearance: grossly normal Affect: normal affect Attitude: cooperative Thought process: Normal thought process present Results AMB Hemoglobin A1c AMB Hemoglobin A1c 6.2 % Last Edit by Aisha Smith MA on 09/11/24 11:12 Results Reviewed Results Reviewed: Laboratory Last Values Hgb A1c (Clinic) 6.2 % (4.0-6.0) H 09/11/24 11:01 Coding Level of Care Code Est Pt Level 4 (84665) Complex EM visit Add On G2211 Diagnoses Bilateral lower extremity edema R60.0 High blood pressure I10 Hyperlipidemia E78.5 Type 2 diabetes mellitus E11.9 Assessment & Plan Assessment & Plan (1) Bilateral lower extremity edema: Code(s): R60.0 - Localized edema Category: Medical Plan: He reports swelling to his lower legs, ankles, and feet for the past 2 months. He has difficulty putting on shoes. Moderate, 1+ edema to bilateral lower legs, ankles, and feet. Likely due to adverse reaction of amlodipine. Amlodipine and hydralazine discontinued at this time. Lisinopril 20 mg daily ordered; advised to take as prescribed. Instructed on the risks, benefits, and potential adverse reactions of the medication. Continue to take metoprolol ER 50 mg daily. Low-sodium diet encouraged. Encouraged to elevate his bilateral lower extremity to improve edema. Follow-up in 2 weeks or sooner with symptoms or concerns. Verbalized understanding and agreed with treatment plan. (2) High blood pressure: Code(s): I10 - Essential (primary) hypertension Category: Medical Plan: Resting blood pressure is 123/74, within goal of less than 130/80. Plan as above. (3) Hyperlipidemia: Code(s): E78.5 - Hyperlipidemia, unspecified Category: Medical Plan: Recent LDL level is elevated, 129, goal is less than 70. Previous level was 127. HDL level is slightly low, 38. He has been consuming significant amount of red meat, cheese, and processed foods. Advised to limit foods high in saturated fat and avoid foods high in trans fat. Routine exercise encouraged. Will recheck lipid panel level in 3 months. Verbalized understanding and agreed with the treatment plan. (4) Type 2 diabetes mellitus: Code(s): E11.9 - Type 2 diabetes mellitus without complications Category: Medical Plan: Diet controlled diabetes. A1c today 6.2%, within goal of less than 7.0%. Previous A1c was 6.2%. ADA diet and routine exercise encouraged. Will recheck A1c in 6 months. Verbalized understanding and agreed with the plan. Orders: Orders AMB Hemoglobin A1c Today Z13.9 - Encounter for screening, unspecified Medications: New lisinopril 20 mg PO DAILY 30 days 30 tabs 3RF Discontinued amlodipine Discontinued Reason: Doctor's Order 10 mg PO DAILY 30 days 30 tabs 3RF
[2024-09-11 10:44] VITALS: BP 123/74; PULSE 69; RESP 16; TEMP 36.6; O2SAT 98; BMI 42.0
== END 2024-09-11 11:21 | disposition home or self-care (01) ==
LOC: HO.HMCFM 10:36
PROVIDERS: PCP Nurse Practitioner Family; Visit Provider Nurse Practitioner Family
DX: R60.0 Localized edema (principal); I10 Essential (primary) hypertension; E78.5 Hyperlipidemia, unspecified; E11.9 Type 2 diabetes mellitus without complications; Z13.9 Encounter for screening, unspecified

== ENCOUNTER 2024-10-15 08:56 | Outpatient (AMB) | payer MEDICARE, SELFPAY ==
--- NOTE | 2024-10-15 09:05 | MHC.PC.OV ---
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 Allergies No Known Allergies Allergy (Verified 10/15/24 09:28) Medication List - Last Reconciled 10/15/24 by Angel Baird CNP apixaban (Eliquis) mg PO BID lisinopril 20 mg PO DAILY 30 days metoprolol succinate ER 50 mg PO DAILY 90 days Tobacco use date assessed: 10/15/24 Fall risk assessment: No Falls in past year Last assessed Fall Risk: 10/15/24 Dental Screening Dental Screen Date: 10/15/24 Did you have a dental visit in the last 12 months?: Yes Did you have a dental problem in the last 6 months where you did not have access to dental care?: No Was dental information given to patient?: Patient has dentist HPI HPI Comments History of Present Illness Details 63-year-old male presents for hypertension follow-up. He admits to taking his medications as prescribed without adverse reactions. He notes that he has been making healthy lifestyle changes. However, he sits on his computer daily for prolonged period. He offers no complaints and denies acute symptoms at this time. [facility] Medical History (Updated 09/11/24 @ 11:21 by Angel Baird CNP) High blood pressure Surgical History (Updated 06/07/24 @ 10:15 by Angel Baird CNP) Hx of tonsillectomy Family History (Updated 06/07/24 @ 08:55 by Aisha Smith MA) Father High blood pressure Lung cancer Mother Cancer Social History Housing: House Patient Tobacco Use Status: Never used Tobacco e-Cigarette/Vaping Use: Never Used Second Hand Smoke Exposure: No service: No Current occupational status: retired Current occupational exposures/hazards: No Cognitive needs: No Hearing needs: No Vision needs: No Questionnaire Thrive Questionnaire Date Thrive assessed: 06/07/24 I am a: Patient What is your living situation today?: I have a steady place to live Within the past 12 months, did the food you bought not last and you didn't have the money to get more?: Never true Within the past 12 months, did you worry whether your food would run out before you got money to buy more?: Never true Do you have trouble paying for medicines?: No Do you have trouble getting transportation to medical appointments?: No Do you have trouble paying your heating and electricity bill?: No Do you have trouble taking care of your child, family member or friend?: No Do you have trouble with day-to-day activities such as bathing, preparing meals, shopping, managing finances, etc.?: No Are you currently unemployed and looking for a job?: No Are you interested in more education?: No Please select the resources that you would like help with: None Currently or been in a relationship where the following occur: No concerns reported THRIVE Score: 0 DORYS-7 AMB Questionnaire DORYS-7 Date DORYS - 7 assessed: 06/07/24 Source: Developed by Drs. Brandyn Negrete, Anabella Faustin, Nikolas Abarca and colleagues, with an educational barbara from [employer]. Review of Systems Const Details: Const Denies chills, Denies fatigue, Denies fever(s), Denies headache(s) and Denies weakness ENT Denies dizziness and Denies headache(s) Card Denies chest pain, Denies lightheadedness, Denies dyspnea and Denies other (Palpitations) Resp Denies cough, Denies dyspnea, Denies wheezing and Denies other ( shortness of breath) GI Denies abdominal pain, Denies melena, Denies hematochezia, Denies change in bowel habits, Denies dyspepsia and Denies nausea Denies hematuria and Denies dysuria Musc Denies abnormal gait, Denies myalgias, Denies arthralgias, Denies numbness and Denies tingling Skin/Breast Denies rash, Denies unusual bruising and Denies wounds Neuro Denies abnormal gait, Denies dizziness, Denies headache(s), Denies memory loss, Denies numbness, Denies Sensory deficit (Neuro), Denies tingling and Denies weakness Psych Denies anxiety, Denies depression, Denies memory loss Endo Denies cold intolerance, Denies fatigue, Denies heat intolerance, Denies polydipsia and Denies polyuria Aller/Immun Denies wheezing Physical exam (Primary Care) Vital Signs: Last Vital Signs Temp 98.2 F 10/15/24 09:18 Pulse 59 10/15/24 09:18 Resp 16 10/15/24 09:18 BP 166/75 H 10/15/24 09:18 Pulse Ox 96 10/15/24 09:18 Oxygen Delivery Method Room Air 10/15/24 09:18 BMI result Body Mass Index 42.1 Tobacco/Smoking Status: Tobacco use Status Tobacco use date assessed 10/15/24 10/15/24 09:18 Patient Tobacco Use Status Never used Tobacco 10/15/24 09:06 e-Cigarette/Vaping Use Never Used 10/15/24 09:06 Thrive Assessment: Date of Thrive Assessment Date Thrive assessed 06/07/24 10/15/24 09:06 Currently or been in a relationship where the following occur: No concerns reported Const Other: General: no acute distress and well developed Nutritional Appearance: well nourished Orientation/consciousness: patient oriented x3 HENMT Head: Yes normocephalic and Yes atraumatic Eyes General: appearance normal, both eyes and all related structures Pupils: Equal, round and reactive pupils present EOM: EOMs intact bilaterally Resp Effort & Inspection: normal respiratory effort Auscultation: clear to auscultation bilaterally Cardio Rate: regular rate Rhythm: regular rhythm Heart sounds: S1 normal heart sound present, S2 normal heart sound present, no gallops, no murmurs and no rubs GI Palpation (GI): No Abdominal aortic bruit present, Soft to palpation, nontender, No hepatosplenomegaly present and No Rebound tenderness present Auscultation: normal bowel sounds General: Yes no CVA tenderness Back/Spine/Pelvis Back: no CVA tenderness Cervical Spine: cervical ROM normal and No Cervical spine tenderness Thoracic/Lumbar Spine: thoraco-lumbar ROM normal, No pain with thoraco-lumbar ROM, No thoracic spinal tenderness and No lumbar spinal tenderness Extrem General: Yes normal to inspection, and No calf tenderness. Mild nonpitting edema noted to bilateral lower legs and feet Skin General: warm and dry. Normal skin color. Normal skin turgor Neuro General: patient oriented x3, gait normal and no focal neuro deficit Cranial nerves: Yes Equal, round and reactive pupils present Cognition (Neuro): normal cognition Gait exam (Neuro): Normal gait present Sensory Exam: No Sensory deficit (Neuro) Psych Appearance: grossly normal Affect: normal affect Attitude: cooperative Thought process: Normal thought process present Coding Level of Care Code Est Pt Level 4 (28372) Diagnoses High blood pressure I10 Assessment & Plan Assessment & Plan (1) High blood pressure: Code(s): I10 - Essential (primary) hypertension Category: Medical Plan: Resting blood pressure is 140/68, above goal of less than 130/80. Mild nonpitting edema noted to bilateral lower legs and feet. His home blood pressure readings average 140-150/70s. He sits on his daily computer for prolonged. Will increase lisinopril to 30 mg daily; advised to take as prescribed. Continue to take metoprolol as prescribed. Low-sodium diet encouraged. Encouraged to wear tight fitted socks and avoid prolonged sitting or standing. Follow-up in 2 months for hypertension, hyperlipidemia, and diabetes, or sooner with symptoms or concerns. Verbalized understanding and agreed with the plan. Orders: Orders Lipid Panel 2 Months E78.5 - Hyperlipidemia, unspecified Medications: New lisinopril 30 mg PO DAILY 30 tabs 3RF 30 days Discontinued lisinopril Discontinued Reason: Doctor's Order 20 mg PO DAILY 30 days 30 tabs 3RF
[2024-10-15 09:18] VITALS: BP 166/75; PULSE 59; RESP 16; TEMP 36.8; O2SAT 96; BMI 42.1
[2024-10-15 09:30] VITALS: BP 140/68
== END 2024-10-15 09:46 | disposition home or self-care (01) ==
LOC: HO.HMCFM 08:57
PROVIDERS: PCP Nurse Practitioner Family; Visit Provider Nurse Practitioner Family
DX: I10 Essential (primary) hypertension (principal)

== ENCOUNTER → 2024-10-15 08:56 | Outpatient (BNVA) | payer MEDICARE, SELFPAY | PROVIDERS: PCP Nurse Practitioner Family; Visit Provider Nurse Practitioner Family | DX: I10 Essential (primary) hypertension (principal); Z79.899 Other long term (current) drug therapy | CPT/HCPCS: 99212 ==

== ENCOUNTER 2024-12-13 09:23 | Outpatient (REF) | payer MEDICARE, SELFPAY ==
[2024-12-13 11:57] LABS: Cholesterol 194 mg/dL (<200); HDL Cholesterol 38 mg/dL (>40); Triglycerides 97 mg/dL (<150)
== END 2024-12-13 09:24 | disposition home or self-care (01) ==
LOC: HO.WFDLDS 09:23
PROVIDERS: Visit Provider Nurse Practitioner Family
DX: E78.5 Hyperlipidemia, unspecified (principal)
CPT/HCPCS: 36415; 80061

== ENCOUNTER 2024-12-17 09:32 | Outpatient (AMB) | payer MEDICARE, SELFPAY ==
--- NOTE | 2024-12-17 09:39 | A.OFFPC_ITS ---
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 Allergies No Known Allergies Allergy (Verified 12/17/24 10:15) Medication List - Last Reconciled 12/17/24 by Angel Baird CNP apixaban (Eliquis) mg PO BID lisinopril 30 mg PO DAILY 30 days mecobalamin (vitamin B12) 1,000 mcg PO DAILY metoprolol succinate ER 50 mg PO DAILY 90 days Tobacco use date assessed: 12/17/24 Fall risk assessment: No Falls in past year Last assessed Fall Risk: 12/17/24 Dental Screening Dental Screen Date: 12/17/24 Did you have a dental visit in the last 12 months?: Yes Did you have a dental problem in the last 6 months where you did not have access to dental care?: No Was dental information given to patient?: Patient has dentist HPI HPI Comments History of Present Illness Details 64-year-old male presents for hypertensi on, diet-controlled type 2 diabetes, and hyperlipidemia follow-up. He admits to taking his medications as prescribed without adverse reactions. He notes that he has been making healthy lifestyle changes. However, he consumes a lot of cheese. He offers no complaints and denies acute symptoms at this time. [facility] Medical History (Updated 12/17/24 @ 10:18 by Angel Baird CNP) High blood pressure Surgical History (Updated 06/07/24 @ 10:15 by Angel Baird CNP) Hx of tonsillectomy Family History (Updated 06/07/24 @ 08:55 by Aisha Smith MA) Father High blood pressure Lung cancer Mother Cancer Social History Housing: House Patient Tobacco Use Status: Never used Tobacco e-Cigarette/Vaping Use: Never Used Second Hand Smoke Exposure: No service: No Current occupational status: retired Current occupational exposures/hazards: No Cognitive needs: No Hearing needs: No Vision needs: No Questionnaire Thrive Questionnaire Date Thrive assessed: 06/07/24 I am a: Patient What is your living situation today?: I have a steady place to live Within the past 12 months, did the food you bought not last and you didn't have the money to get more?: Never true Within the past 12 months, did you worry whether your food would run out before you got money to buy more?: Never true Do you have trouble paying for medicines?: No Do you have trouble getting transportation to medical appointments?: No Do you have trouble paying your heating and electricity bill?: No Do you have trouble taking care of your child, family member or friend?: No Do you have trouble with day-to-day activities such as bathing, preparing meals, shopping, managing finances, etc.?: No Are you currently unemployed and looking for a job?: No Are you interested in more education?: No Please select the resources that you would like help with: None Currently or been in a relationship where the following occur: No concerns reported THRIVE Score: 0 DORYS-7 AMB Questionnaire DORYS-7 Date DORYS - 7 assessed: 06/07/24 Source: Developed by Drs. Brandyn Negrete, Anabella Faustin, Nikolas Abarca and colleagues, with an educational barbara from [employer]. Review of Systems Const Details: Const Denies chills, Denies fatigue, Denies fever(s), Denies headache(s) and Denies weakness ENT Denies dizziness and Denies headache(s) Card Denies chest pain, Denies lightheadedness, Denies dyspnea and Denies other (Palpitations) Resp Denies cough, Denies dyspnea, Denies wheezing and Denies other ( shortness of breath) GI Denies abdominal pain, Denies melena, Denies hematochezia, Denies change in bowel habits, Denies dyspepsia and Denies nausea Denies hematuria and Denies dysuria Musc Denies abnormal gait, Denies myalgias, Denies arthralgias, Denies numbness and Denies tingling Skin/Breast Denies rash, Denies unusual bruising and Denies wounds Neuro Denies abnormal gait, Denies dizziness, Denies headache(s), Denies memory loss, Denies numbness, Denies Sensory deficit (Neuro), Denies tingling and Denies weakness Psych Denies anxiety, Denies depression, Denies memory loss Endo Denies cold intolerance, Denies fatigue, Denies heat intolerance, Denies polydipsia and Denies polyuria Aller/Immun Denies wheezing Physical exam (Primary Care) Vital Signs: Last Vital Signs Temp 97.6 F 12/17/24 09:52 Pulse 61 12/17/24 09:52 Resp 16 12/17/24 09:52 BP 135/68 12/17/24 09:52 Pulse Ox 97 12/17/24 09:52 Oxygen Delivery Method Room Air 12/17/24 09:52 BMI result Body Mass Index 41.4 Tobacco/Smoking Status: Tobacco use Status Tobacco use date assessed 12/17/24 12/17/24 09:54 Patient Tobacco Use Status Never used Tobacco 12/17/24 09:41 e-Cigarette/Vaping Use Never Used 12/17/24 09:41 Thrive Assessment: Date of Thrive Assessment Date Thrive assessed 06/07/24 12/17/24 09:41 Currently or been in a relationship where the following occur: No concerns reported Const Other: General: no acute distress and well developed Nutritional Appearance: well nourished Orientation/consciousness: patient oriented x3 HENMT Head: Yes normocephalic and Yes atraumatic Eyes General: appearance normal, both eyes and all related structures Pupils: Equal, round and reactive pupils present EOM: EOMs intact bilaterally Resp Effort & Inspection: normal respiratory effort Auscultation: clear to auscultation bilaterally Cardio Rate: regular rate Rhythm: regular rhythm Heart sounds: S1 normal heart sound present, S2 normal heart sound present, no gallops, no murmurs and no rubs GI Palpation (GI): No Abdominal aortic bruit present, Soft to palpation, nontender, No hepatosplenomegaly present and No Rebound tenderness present Auscultation: normal bowel sounds General: Yes no CVA tenderness Back/Spine/Pelvis Back: no CVA tenderness Cervical Spine: cervical ROM normal and No Cervical spine tenderness Thoracic/Lumbar Spine: thoraco-lumbar ROM normal, No pain with thoraco-lumbar ROM, No thoracic spinal tenderness and No lumbar spinal tenderness Extrem General: Yes normal to inspection, No edema and No calf tenderness Skin General: warm and dry. Normal skin color. Normal skin turgor Neuro General: patient oriented x3, gait normal and no focal neuro deficit Cranial nerves: Yes Equal, round and reactive pupils present Cognition (Neuro): normal cognition Gait exam (Neuro): Normal gait present Sensory Exam: No Sensory deficit (Neuro) Psych Appearance: grossly normal Affect: normal affect Attitude: cooperative Thought process: Normal thought process present Coding Level of Care Code Est Pt Level 4 (49739) Diagnoses High blood pressure I10 Diet-controlled type 2 diabetes mellitus E11.9 Hyperlipidemia E78.5 Assessment & Plan Assessment & Plan (1) High blood pressure: Code(s): I10 - Essential (primary) hypertension Category: Medical Plan: Resting blood pressure is 120/78, within goal of less than 130/80. Continue current treatment regimen. Low-sodium diet encouraged. We will continue to monitor. Verbalized understanding and agreed with the plan. (2) Diet-controlled type 2 diabetes mellitus: Code(s): E11.9 - Type 2 diabetes mellitus without complications Category: Medical Plan: A1c today is 5.8%, within goal of less than 7.0%. Previous A1c was 6.2%. ADA diet and routine exercise encouraged. Will monitor A1c in 6 months. Verbalized understanding and agreed with the plan. (3) Hyperlipidemia: Code(s): E78.5 - Hyperlipidemia, unspecified Category: Medical Plan: Recent LDL level is elevated, 137, goal is less than 70; HDL is slightly low, 38. He consumes significant amount of cheese. Atorvastatin 20 mg daily at bedtime ordered; advised to take as prescribed. Instructed on the risks, benefits, and potential adverse reactions of the medication. Advised to limit foods high in saturated fat and avoid foods high in trans fat. Routine exercise encouraged. Fast for 10-12 hours, may drink water, and perform lipid panel blood work a few days before next visit. Follow-up in 3 months. Verbalized understanding and agreed with the plan. Orders: Orders AMB Hemoglobin A1c Today Z13.9 - Encounter for screening, unspecified Lipid Panel 6 Months E78.5 - Hyperlipidemia, unspecified Medications: New atorvastatin (Lipitor) 20 mg PO BEDTIME 30 days 30 tabs 3RF
[2024-12-17 09:52] VITALS: BP 135/68; PULSE 61; RESP 16; TEMP 36.4; O2SAT 97; BMI 41.4
[2024-12-17 10:22] VITALS: BP 128/78
== END 2024-12-17 10:28 | disposition home or self-care (01) ==
LOC: HO.HMCFM 09:33
PROVIDERS: PCP Nurse Practitioner Family; Visit Provider Nurse Practitioner Family
DX: I10 Essential (primary) hypertension (principal); E11.9 Type 2 diabetes mellitus without complications; E78.5 Hyperlipidemia, unspecified; Z13.9 Encounter for screening, unspecified

== ENCOUNTER → 2024-12-17 09:32 | Outpatient (BNVA) | payer MEDICARE, SELFPAY | PROVIDERS: PCP Nurse Practitioner Family; Visit Provider Nurse Practitioner Family | DX: I10 Essential (primary) hypertension (principal); E11.9 Type 2 diabetes mellitus without complications; E78.5 Hyperlipidemia, unspecified | CPT/HCPCS: 83036; 99212 ==